=== PATIENT | female | born 1945 | race Caucasian/White ===

== ENCOUNTER → 2016-11-20 | Outpatient (CLI) | payer OTHER | LOC: BMCIMAGING 11:48 | PROVIDERS: ATTEND Internal Medicine | DX: J18.1 Lobar pneumonia, unspecified organism (principal) | CPT/HCPCS: G0463-PO ==

== ENCOUNTER → 2017-01-07 | Outpatient (CLI) | payer OTHER | LOC: FIMAGING 11:04 | PROVIDERS: ATTEND Internal Medicine | DX: Z09 Encounter for follow-up examination after completed treatment for conditions other than malignant neoplasm (principal) ==

== ENCOUNTER → 2017-03-31 | Outpatient (CLI) | payer OTHER | LOC: FIMAGING 13:05 | PROVIDERS: ATTEND Internal Medicine | DX: Z12.31 Encounter for screening mammogram for malignant neoplasm of breast (principal) | CPT/HCPCS: G0202 ==

== ENCOUNTER 2017-10-12 10:08 | Observation (INO) | payer OTHER ==
[2017-10-12] MEDS ORDERED: ceFAZolin 2 GM/SWFI 2 GM/20 ML SYR IVP ONE (12:31)
[2017-10-12] MEDS ORDERED: LIDOCAINE 1% 2 ML INJ ID PRN (14:05)
[2017-10-12] MEDS ORDERED: LR 1,000 ML IV ONE (14:05)
[2017-10-12] MEDS ORDERED: MIDAZOLAM 2 MG/2 ML VIAL IVP ONE (15:04)
[2017-10-12] MEDS ORDERED: fentaNYL 100 MCG/2 ML INJ IVP ONE (15:05)
[2017-10-12] MEDS ORDERED: MIDAZOLAM 2 MG/2 ML VIAL ONE (15:06)
[2017-10-12] MEDS ORDERED: fentaNYL 100 MCG/2 ML INJ ONE ×3 (15:07→18:47)
--- NOTE | 2017-10-12 15:07 | PDANEPAE ---
ANE History of Present Illness r foot ligament repair ANE Past Medical History - Cardiovascular History Hx Hypertension: No Hx Arrhythmias: No Hx Chest Pain: No Hx Coronary Artery / Peripheral Vascular Disease: No Hx CHF / Valvular Disease: No Hx Palpitations: No - Pulmonary History Hx COPD: No Hx Asthma/Reactive Airway Disease: No Hx Recent Upper Respiratory Infection: No Hx Oxygen in Use at Home: No Hx Sleep Apnea: No Sleep Apnea Screening Result - Last Documented: Negative Pulmonary History Comment: PNEUMONIA 11/2016. SOME RESIDUAL CHRONIC COUGH - Neurologic History Hx Cerebrovascular Accident: No Hx Seizures: No Hx Dementia: No - Endocrine History Hx Diabetes: No - Renal History Hx Renal Disorders: No - Liver History Hx Hepatic Disorders: No - Neurological & Psychiatric Hx Hx Neurological and Psychiatric Disorders: No - Cancer History Hx Cancer: No - Congenital Disorder History Hx Congenital Disorders: No - GI History Hx Gastrointestinal Disorders: No - Other Health History Other Health History: NEG - Chronic Pain History Chronic Pain: No - Surgical History Prior Surgeries: I & D HIP R. L ELBOW SURG ANE Review of Systems Review of Systems: - Exercise capacity METS (RN): 4 METS ANE Patient History - Allergies Allergies/Adverse Reactions: prochlorperazine edisylate [From Compazine] Allergy (Severe, Verified 08/14/11 13:14) Anaphylaxis prochlorperazine maleate [From Compazine] Allergy (Severe, Verified 08/14/11 13: 14) Anaphylaxis terbinafine HCl [From Lamisil] Allergy (Mild, Verified 08/14/11 13:14) Rash - Home Medications Home Medications: CALCIUM CITRATE 08/14/11 [Last Taken 10/06/17] Fish Oil 1,000 mg Softgel 08/14/11 [Last Taken 10/06/17] GLUCOSAMINE HCL 08/14/11 [Last Taken 10/06/17] MULTIVITAMINS W-IRON 08/14/11 [Last Taken 10/06/17] Meloxicam 10/06/17 [Last Taken 10/06/17] Methotrexate 10/06/17 [Last Taken 10/08/17] - NPO status NPO Since - Liquids (Date): 10/12/17 NPO Since - Liquids (Time): 12:00 NPO Since - Solids (Date): 10/12/17 NPO Since - Solids (Time): 06:45 - Smoking Hx Smoking Status: Never smoked - Family Anes Hx Family Hx Anesthesia Complications: NEG ANE Labs/Vital Signs - Vital Signs Vital Signs: reviewed preoperatively; see RN documention for details Blood Pressure: 137/57 Heart Rate: 79 Respiratory Rate: 16 O2 Sat (%): 94 Height: 172.72 cm Weight: 69.4 kg ANE Physical Exam - Airway Neck exam: FROM Mallampati Score: Class 2 Mouth exam: normal dental/mouth exam - Pulmonary Pulmonary: no respiratory distress - Cardiovascular Cardiovascular: regular rate and rhythym - ASA Status ASA Status: II ANE Anesthesia Plan Anesthesia Plan: GA w LMA, MAC Regional Anesthesia: popliteal SNB
[2017-10-12] MEDS ORDERED: PROPOFOL 200 MG/20 ML VIAL ONE (16:52)
--- NOTE | 2017-10-12 16:52 | PDHPUP ---
History & Physical Update H&P update statement: This history and physical update is based on an assessment of the patient which was completed after admission or registration (within 24 hours), but prior to the surgery/procedure.
[2017-10-12] MEDS ORDERED: BUPIVACAINE 0.5% 30 ML SDV ONE (17:07)
[2017-10-12] MEDS ORDERED: DEXAMETHASONE 4 MG/ML VIAL ONE (17:43)
[2017-10-12] MEDS ORDERED: ONDANSETRON 4 MG/2 ML VIAL ONE (17:43)
[2017-10-12] MEDS ORDERED: HYDROmorphONE/DILAUDID 1 MG/ML INJ IVP PRN (18:39)
--- NOTE | 2017-10-12 18:39 | POSTOPPROG ---
Post Op Note Date of Operation: 10/12/17 Surgeon: Corbin Moss [employer] Major: Cruz Anesthesia: GET(General Endotracheal) Pre-op Diagnosis: R post tib tendon rupture Post-op Diagnosis: same Indication: above Procedure: R FDL transfer spring lig recon Inf/Abcess present in the surg proc area at time of surgery?: No EBL: 50-100
[2017-10-12] MEDS ORDERED: NALOXONE HCL 0.4 MG/ML INJ IVP PRN (18:42)
[2017-10-12] MEDS ORDERED: ONDANSETRON 4 MG/2 ML VIAL IVP PRN (18:42)
[2017-10-12] MEDS ORDERED: HYDROCODONE/APAP 5/325 TAB PO PRN (18:42)
[2017-10-12] MEDS ORDERED: epHEDrine SULFATE 10 MG/ML SYR IVP PRN (18:42)
[2017-10-12] MEDS ORDERED: LR 500 ML IV PRN (18:42)
[2017-10-12] MEDS ORDERED: LABETALOL HCL 5 MG/ML 20 ML MDV IVP PRN (18:42)
[2017-10-12] MEDS ORDERED: PHENYLEPHRINE HCL 100 MCG/ML SYR IVP PRN (18:42)
[2017-10-12] MEDS ORDERED: fentaNYL 100 MCG/2 ML INJ IVP PRN (18:42)
--- NOTE | 2017-10-12 18:44 | POSTANESTH ---
Post Anesthetic Evaluation Cardiovascular Status: Normal, Stable, Similar to Pre-Op Cond Respiratory Status: Normal, Stable, Similar to Pre-op Cond. Level of Consciousness/Mental Status: Can Participate in Eval, Alert and Oriented Pain Control: Adequate, Prn Tx Ordered Nausea/Vomiting Control: Adequate, Prn Tx Ordered Complications Possibly Related to Anesthesia: None Noted
[2017-10-12] MEDS: oxyCODONE IR 5 MG TAB PO PRN (21:34)
[2017-10-13] MEDS: ceFAZolin 2 GM/DEXTROSE 100 ML IV SCH ×2 (00:32→07:44)
[2017-10-13] MEDS: oxyCODONE IR 5 MG TAB PO PRN ×3 (01:29→11:42)
[2017-10-13 08:23] VITALS: RESP 14; TEMP 97.7
[2017-10-13 13:13] VITALS: BP 112/81; PULSE 65; O2SAT 94
--- NOTE | 2017-10-13 14:11 | PDIAF ---
- Diagnosis Code Status: Full Code - Medication Management Discharge Medications: Medications to Continue on Transfer Herbals/Supplements -Info Only 1 ea PO DAILY 10/12/17 [Last Taken Unknown] Meloxicam [Mobic 15 mg] 15 mg PO DAILY PRN 10/12/17 [Last Taken 10/06/17] Multivitamins [Multivitamin (*)] 1 each PO DAILY 10/12/17 [Last Taken 10/06/17] [place]-3 Fatty Acids [Fish Oil 1000 mg (*)] 1,000 mg PO DAILY 10/12/17 [Last Taken 10/06/17] oxyCODONE IR [Oxycodone Ir (*)] 5 - 10 mg PO Q4HRS PRN tab 10/13/17 [Last Taken Unknown] Discharge Medications: Refer to the Discharge Home Medication list for PRN reason. - Orders Services needed: Home Care, Physical Therapy Home Care Face to Face: I certify that this patient was under my care and that I had the required xovo-uj-wsky encounter meeting the encounter requirements on the discharge day. My findings support the fact that the patient is homebound as defined in Home Care Face to Face Continued: CMS Chapter 7 Medicare Benefits Manual 30.1.1 , The condition of the patient is such that there exists a normal inability to leave home and consequently, leaving home would require a considerable and taxing effort. Diet Recommendation: no restrictions on diet Diet Texture: Regular Texture Diet Activity/Weight Bearing Restrictions: RLE non wt bearing. ice. elevate. keep dry. f/u as scheduled - Follow Up Care Current Providers and Referrals: Joao Mcfadden MD [Primary Care Provider] -
--- NOTE | 2017-10-13 14:21 | GOP ---
[f rep st] OPERATIVE REPORT DATE OF OPERATION: 10/12/2017 SURGEON: Corbin Moss MD SUPERVISOR [employer]PLY: Anthony Arroyo SA. PREOPERATIVE DIAGNOSIS: 1. Right posterior tibial tendon rupture. 2. Adult acquired flatfoot deformity. 3. Spring ligament tear. POSTOPERATIVE DIAGNOSIS: 1. Right posterior tibial tendon rupture. 2. Adult acquired flatfoot deformity. 3. Spring ligament tear. PROCEDURE PERFORMED: 1. Right posterior tibial tendon debridement. 2. Right FDL tendon transfer. 3. Right spring ligament reconstruction. FINDINGS: SPECIMENS: The posterior tibial tendon for path. ESTIMATED BLOOD LOSS: 5 mL. INDICATIONS: This is a 72-year-old female who is having significant pain with flexion of her foot. M RI showed complete versus near complete tear of the posterior tibial tendon. She continued to have pa in. She failed conservative management. We talked to her about following surgery and the risks and be nefits including the need for further operation, nerve injury, continued pain, failure of transfer, r e-rupture, blowout fracture, and she elected to proceed. Informed consent obtained. All questions. Ma rked preoperatively. DESCRIPTION OF PROCEDURE: She was taken to the operative suite. A block administered per Anesthesia, sterilely prepped and drape in normal fashion. Time-out was performed verifying the patient, side, s ite, and location and there was agreement with the team. Tourniquet was inflated after Esmarch. An incision was made over the posterior tibial tendon and thro ugh the fascia. The posterior tibial tendon was completely ruptured and the proximal end was retracte d. I let this be retracted, resected the distal end, and sent this for permanent path. I isolated the FDL tendon and cut this distally and whipstitched this. The spring ligament was obviously lax and th ere was too much laxity in this. I found the sustentaculum, located this with a guide pin, checked th is fluoroscopically, drilled and placed a 3.5 SwiveLock with internal brace in this. I then drilled a 4.5 mm hole from medial plantar to dorsal lateral in the talus and took one limb to the brace from l ateral to medial and the other one medial to lateral as well as the tendon. I tensioned all three of these independently and then placed a 4.75 SwiveLock to hold this in tight construct, being careful n ot to over tighten the Internalbrace. Then I oversewed the spring ligament with the remaining anchor. I then thoroughly irrigated this and closed with 0 Vicryl, 2-0 Vicryl, 3-0 Quill, and Dermabond. She was placed in a sterile dressing and taken to PACU in stable condition. IMPLANTS: Arthrex internal brace with 3.5 and 4.75 SwiveLock anchors. COMPLICATIONS: None. DRAINS: None. CONDITION: Stable. /[id number]/MODL
--- NOTE | 2017-10-13 14:36 | GDS ---
[f rep st] DISCHARGE SUMMARY DIAGNOSIS: Right posterior tibial tendon tear. HOSPITAL COURSE: She was admitted after surgery for right posterior tibial tendon debridement, FDL t ransfer, and spring ligament repair. She did well, meeting criteria for discharge to include physica l therapy. She did meet criteria for home health as well. CONDITION ON DISCHARGE: Stable. PROCEDURES: The right posterior tibial tendon debridement, FDL transfer, and spring ligament repair. CONSULTING PHYSICIANS: None. DISPOSITION: Home. She was sent out starting her previous home medications. She will hold her meth otrexate this Wednesday. She was given prescriptions for pain medicine including oxycodone. Take 1 asp irin 325 mg a day for 2 weeks for DVT prophylaxis. She will call or come back to the hospital if she has chest pain, shortness of breath, or other concerns. I will see her as scheduled in followup. /[id number]/MODL
--- NOTE | 2017-10-13 15:22 | ASMTCMCOM ---
CM Note CM Note Notes: Pt medically stable for d/c w [facility] PT. Orders to be obtained in [facility]. Date Signed: 10/13/2017 03:22 PM Electronically Signed By:TONY Fitzgerald
--- NOTE | 2017-10-13 15:23 | ASDISCHSUM ---
Discharge Information Plan Status:Home with Home Health Medically Cleared to Leave: Discharge Date:10/13/2017 03:07 PM CM D/C Disposition:Home Health Service ADT D/C Disposition:Home Health Service Projected Discharge Date:10/13/2017 11:00 AM Transportation at D/C:Family Discharge Delay Reason: Follow-Up Date:10/13/2017 11:00 AM Discharge Slot: Final Diagnosis: Placement Information Referral Type:*Home Health Care Services Referral ID:[id number] Provider Name:[facility] Address 1[address] Address 2: City:[place] Selection Factors: State:[place] Patient Contact Information Contact Name:USAMA Relationship: Address:[address] City:[place] Alternate Phone: State/Zip Code:[place] [address] Email: Financial Information Financial Class: Primary Plan Desc:MEDICARE OUTPATIENT Primary Plan Number:[id number] Secondary Plan Desc:[employer]DE[employer]ITY Secondary Plan Number:[id number] Assessment Information [facility] CM Progress Note CM Note CM Note Notes: Pt medically stable for d/c w [facility] PT. Orders to be obtained in [facility]. Date Signed: 10/13/2017 03:22 PM Electronically Signed By:OTNY Fitzgerald Intervention Information Intervention Type:*JP-Signed Date of Service:10/13/2017 12:13 PM Patient Type:Observation Staff Member:Isamar Menjivar Hours: Discipline: Severity: Comment:
== END 2017-10-13 15:07 | disposition home health service (06) ==
LOC: F3N 13:43 → EDSTATUS 15:15 → F3N 19:51
PROVIDERS: ADMIT Orthopaedic Surgery; ATTEND Orthopaedic Surgery
DX: M66.871 Spontaneous rupture of other tendons, right ankle and foot (principal); M67.961 Unspecified disorder of synovium and tendon, right lower leg; M21.41 Flat foot [pes planus] (acquired), right foot; M79.671 Pain in right foot; M06.9 Rheumatoid arthritis, unspecified
CPT/HCPCS: 27691; 27695; 88305; 97116; 97161; 97165; C1713; G8978; G8979; G8980; G8987; G8988; G8989; J0690; J1100; J2250; J2405; J2704; J3010; J2370

== ENCOUNTER → 2018-04-28 | Outpatient (CLI) | payer OTHER | LOC: FIMAGING 10:04 | PROVIDERS: ATTEND Internal Medicine | DX: Z12.31 Encounter for screening mammogram for malignant neoplasm of breast (principal) ==

== ENCOUNTER → 2019-03-16 | Outpatient (CLI) | payer OTHER | LOC: FIMAGING 09:43 ==